=== PATIENT | female | born 1975 | race Caucasian/White ===

== ENCOUNTER 2016-06-28 13:08 | Emergency (ER) | payer BC ==
--- NOTE | 2016-06-28 13:36 | Emergency Department Report ---
Chief Complaint: Dizziness Stated Complaint: TINGLING IN LEFT ARM Time Seen by Provider: 06/28/16 13:31 - HPI History of Present Illness: 41-year-old comes in for complaint of left side neck pain that radiates to the left arm, arm numbness pain pain also radiates to the right hand and arm numbness. Patient denies any trauma. Complains of headache 8 out of 10. Patient has a past medical history of hypercholesterolemia.. History of gallbladder removal - Exam Vital Signs: Vital Signs 06/28/16 13:20 Temperature 98.1 F Pulse Rate 86 Blood Pressure 126/92 O2 Sat by Pulse 100 Oximetry Physical Exam: Agents alert and oriented. EOMI intact tongue protrusion intact shoulder shrug intact, light like sensation to the face intact, there is no arm drift. Gag reflex intact, strength 4-5 upper extremities. Chest tenderness to palpate, left sided tenderness to the neck and shoulder. MSE screening note: Focused history and physical exam performed. Due to findings the following was ordered: CBC BMP serum test ordered. Patient be evaluated Main ER ED Disposition for MSE Condition: Stable
[2016-06-28 13:58] LABS: Hematocrit 39.8 % (30.3-42.9); Hemoglobin 13.6 gm/dl (10.1-14.3); Mean Corpuscular HGB Conc 34 % (30-34); Mean Corpuscular Hemoglobin 32 pg (28-32); Mean Corpuscular Volume 93 fl (79-97); Platelet Count 182 K/mm3 (140-440); Red Blood Count 4.26 M/mm3 (3.65-5.03); Red Cell Distribution Width 13.1 % (13.2-15.2); White Blood Count 8.5 K/mm3 (4.5-11.0)
[2016-06-28 14:10] LABS: Blood Urea Nitrogen 11 mg/dL (7-17); Calcium 8.7 mg/dL (8.4-10.2); Carbon Dioxide 24 mmol/L (22-30); Glucose 108 mg/dL (65-100); Potassium 3.9 mmol/L (3.6-5.0); Sodium 139 mmol/L (137-145)
[2016-06-28 14:14] LABS: Anion Gap 17 mmol/L
[2016-06-28 20:07] VITALS: BP 131/87
[2016-06-28] MEDS ORDERED: FLEXERIL PO ONE (20:28)
--- NOTE | 2016-06-28 20:35 | Emergency Department Report ---
ED Neck Pain/Injury HPI - General Chief Complaint: Dizziness Stated Complaint: TINGLING IN LEFT ARM Time Seen by Provider: 06/28/16 13:31 Source: patient Mode of arrival: Ambulatory Limitations: Language Barrier - History of Present Illness Initial Comments: 41-year-old female presents to the emergency department complaining of left sided neck and shoulder pain since 11 AM. Patient describes a tightness that radiates into her jaw. She also reports tingling down her left arm. Patient denies trauma. She also denies weakness. There are no other complaints. MD Complaint: neck pain -: Sudden, This morning Time: 11:00 Place: home Radiation: left shoulder, left upper extremity Severity: moderate Severity scale (0 -10): 7 Quality: sharp Consistency: constant Improves With: none Worsens With: movement of extremity, movement of neck Associated Symptoms: tingling Treatments Prior to Arrival: none - Related Data Previous Rx's Medication Instructions Recorded Last Taken Type Cyclobenzaprine [Flexeril] 10 mg PO TID PRN #30 tablet 06/28/16 Unknown Rx Allergies Allergy/AdvReac Type Severity Reaction Status Date / Time Penicillins Allergy Itching Verified 06/28/16 13:30 ED Review of Systems ROS: Stated complaint: TINGLING IN LEFT ARM Other details as noted in HPI Comment: All other systems reviewed and negative Musculoskeletal: as per HPI Neurological: paresthesias ED Past Medical Hx - Past Medical History Previous Medical History?: Yes Additional medical history: high cholesterol - Surgical History Past Surgical History?: Yes Hx Cholecystectomy: Yes Additional Surgical History: hernia repair - Family History Family history: no significant - Social History Smoking Status: Never Smoker Substance Use Type: None - Medications Home Medications: Home Medications Medication Instructions Recorded Confirmed Last Taken Type Cyclobenzaprine [Flexeril] 10 mg PO TID PRN #30 tablet 06/28/16 Unknown Rx ED Physical Exam - General Limitations: Language Barrier General appearance: alert, in no apparent distress - Head Head exam: Present: atraumatic, normocephalic - Eye Eye exam: Present: normal appearance, PERRL, EOMI - ENT ENT exam: Present: normal exam, normal orophraynx, mucous membranes moist - Neck Neck exam: Present: normal inspection, tenderness (tenderness and spasm noted to the left lateral neck extending into the left trapezius area), full ROM - Respiratory Respiratory exam: Present: normal lung sounds bilaterally. Absent: respiratory distress - Cardiovascular Cardiovascular Exam: Present: regular rate, normal rhythm, normal heart sounds - GI/Abdominal GI/Abdominal exam: Present: soft, normal bowel sounds. Absent: distended, tenderness - Extremities Exam Extremities exam: Present: normal inspection, full ROM. Absent: tenderness - Back Exam Back exam: Present: normal inspection, full ROM. Absent: tenderness - Neurological Exam Neurological exam: Present: alert, oriented X3. Absent: motor sensory deficit - Skin Skin exam: Present: warm, dry, intact ED Course Vital Signs 06/28/16 06/28/16 13:20 20:06 Temperature 98.1 F 98.2 F Pulse Rate 86 82 Respiratory 20 Rate Blood Pressure 126/92 Blood Pressure 131/87 [Left] O2 Sat by Pulse 100 100 Oximetry ED Medical Decision Making - Lab Data Result diagrams: 06/28/16 13:39 06/28/16 13:39 - EKG Data -: EKG Interpreted by Sc EKG shows normal: sinus rhythm, axis, intervals, QRS complexes, ST-T waves Rate: normal - EKG Data When compared to previous EKG there are: no significant change Interpretation: unchanged when compared t (01/15/2011) - Medical Decision Making Exam findings are consistent with muscle spasms. Patient will be treated symptomatically and discharged home to follow up with her primary care physician. - Differential Diagnosis neck pain, muscle spasm, cervical radiculopathy Critical care attestation.: If time is entered above; I have spent that time in minutes in the direct care of this critically ill patient, excluding procedure time. ED Disposition Clinical Impression: Muscle spasms of neck Disposition: DISCHARGED TO HOME OR SELFCARE Is pt being admited?: No Condition: Stable Instructions: Muscle Spasm (ED) Prescriptions: Cyclobenzaprine [Flexeril] 10 mg PO TID PRN #30 tablet PRN Reason: Muscle Spasm Time of Disposition: 20:36 Print Language: HEBREW
== END 2016-06-28 20:49 | disposition home or self-care (01) ==
LOC: ED 13:08
DX: M62.838 Other muscle spasm (principal); E78.00 Pure hypercholesterolemia, unspecified; Z88.0 Allergy status to penicillin
CPT/HCPCS: 36415; 80048; 84703; 85027; 93005; 93010

== ENCOUNTER 2022-01-27 20:08 | Emergency (ER) | payer SELFPAY ==
[2022-01-27 20:34] VITALS: BP 135/90
== END 2022-01-28 01:50 | disposition left against medical advice (07) ==
LOC: ED 20:08
DX: I10 Essential (primary) hypertension (principal); Z53.21 Procedure and treatment not carried out due to patient leaving prior to being seen by health care provider